=== PATIENT | female | born 1985 | race Two or more races ===

== ENCOUNTER 2023-05-27 19:26 | Emergency (ER) | payer OTHER, MEDICAID ==
[~2023-05-27] VITALS: Ht 160 cm; Wt 91.7 kg
[2023-05-27 22:16] VITALS: BP 147/80; PULSE 95; RESP 16; TEMP 99; O2SAT 98
[2023-05-27] MEDS ORDERED: HYDROcodone-ACET 5/325MG TAB PO ONE (22:30)
[2023-05-27] MEDS ORDERED: IBU600T PO (22:33)
== END 2023-05-27 23:44 | disposition home or self-care (01) ==
LOC: ER 19:26
DX: S93.401A Sprain of unspecified ligament of right ankle, initial encounter (principal); S93.601A Unspecified sprain of right foot, initial encounter; Z79.1 Long term (current) use of non-steroidal anti-inflammatories (NSAID); X50.1XXA Overexertion from prolonged static or awkward postures, initial encounter; Y93.89 Activity, other specified; Y92.89 Other specified places as the place of occurrence of the external cause; Y99.8 Other external cause status
CPT/HCPCS: 29515; 73610; 73630

== ENCOUNTER 2025-06-28 22:32 | Emergency (ER) | payer OTHER ==
[~2025-06-28] VITALS: Ht 157.5 cm; Wt 89.3 kg
[~2025-06-28 22:32] MED LIST: IBU600T PO
[2025-06-28 22:34] VITALS: BP 123/84; PULSE 75; RESP 16; TEMP 98.6; O2SAT 96
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
[2025-06-29] MEDS ORDERED: IBUPROFEN 800 MG TAB PO ONE (01:00)
== END 2025-06-29 02:06 | disposition home or self-care (01) ==
LOC: ER 22:32
DX: M25.512 Pain in left shoulder (principal); M25.511 Pain in right shoulder; Z79.899 Other long term (current) drug therapy; V43.52XA Car driver injured in collision with other type car in traffic accident, initial encounter; Y93.89 Activity, other specified; Y92.488 Other paved roadways as the place of occurrence of the external cause; Y99.8 Other external cause status

== ENCOUNTER 2025-10-19 08:32 | Emergency (ER) | payer OTHER ==
[~2025-10-19] VITALS: Ht 157.5 cm; Wt 90.1 kg
--- NOTE | 2025-10-19 09:26 | ED.PDOC ---
Foreign Body HPI Comments This is a 40 year old female presenting to the ED with chief complaint of food stuck in throat. Patient reports that she was eating steak last night when she noticed that a piece got stuck in her throat, being unable to swallow it. Patient relays that since then she has been experiencing nausea with associated vomiting and difficulty swallowing water. Patient states she was seen in [facility] [place]R was performed and she was given glucagon, but no relief had been noted. Patient notes she has had a similar episode before 13 years ago when she needed an endoscopy to remove a piece of pork chop at the time. Patient denies any abdominal pain, SOB, or sore throat. Chief Complaint: Foreign Body Time Seen by MD: 09:24 History of Present Illness: Nurses Notes, Medications, Allergies Allergies: Coded Allergies: NO KNOWN ALLERGIES (Unverified , 05/27/23) Home Meds Active Scripts Ibuprofen Micronized (MOTRIN TABLET) 600 Mg Tb, 1 TAB PO TID PRN, #20 TAB as needed for pain with food Prov:ARMANDO UPTON SHIP RIGGER 05/27/23 Information Source: Patient, Spouse Mode of Arrival: Ambulatory Timing: Hours Duration: Since onset Severity: Moderate Ability to handle secretions: Difficult Prehospital treatment: None Location: Throat Context: Ingestion, Accidental Foreign Body: Other (Steak) Removal: Was not attempted, Was not successful Past Medical History PAST MEDICAL HISTORY: Denies Surgical History (Other): Endoscopy for stuck food PAIRER History: No Pertinent PAIRER History Family History Family History: Reviewed,noncontributory to illness Social History Smoker: Non-Smoker Alcohol: Denies ETOH Use Drugs: Denies Drug Use Lives In: Home Constitutional: denies: chills, diaphoresis, fatigue, fever, malaise, sweats, weakness, others EENTM: reports: others (Difficulty swallowing); denies: blurred vision, double vision, ear bleeding, ear discharge, ear drainage, ear pain, ear ringing, eye pain, eye redness, hearing loss, mouth pain, mouth swelling, nasal discharge, nose bleeding, nose congestion, nose pain, photophobia, tearing, throat pain, throat swelling, voice changes Respiratory: denies: cough, hemoptysis, orthopnea, SOB at rest, shortness of breath, SOB with excertion, stridor, wheezing, others Cardiovascular: denies: chest pain, dizzy spells, diaphoresis, Dyspnea on exertion, edema, irregular heart beat, left arm pain, lightheadedness, palpitations, PND, syncope, others Gastrointestinal: reports: nausea, vomiting; denies: abdomen distended, abdominal pain, blood streaked bowels, constipated, diarrhea, dysphagia, difficulty swallowing, hematemesis, melena, poor appetite, poor fluid intake, rectal bleeding, rectal pain, others Genitourinary: denies: abnormal vagina bleeding, burning, dyspareunia, dysuria, flank pain, frequency, hematuria, incontinence, pain, , vagina discharge, urgency, others Neurological: denies: dizziness, fainting, headache, left sided numbness, left sided weakness, numbness, paresthesia, pre-existing deficit, right sided numbness, right sided weakness, seizure, speech problems, tingling, tremors, weakness, others Musculoskeletal: denies: back pain, gout, joint pain, joint swelling, muscle pain, muscle stiffness, neck pain, others Integumetry: denies: bruises, change in color, change in hair/nails, dryness, laceration, lesions, lumps, rash, wounds, others Allergic/Immunocompromised: denies: Difficulty Healing, Frequent Infections, Hives, Itching, others Hematologic/Lymphatic: denies: anemia, blood clots, easy bleeding, easy bruising, swollen glands, others Endocrine: denies: excessive hunger, excessive sweating, excessive thirst, excessive urination, flushing, intolerance to cold, intolerance to heat, unexplained weight gain, unexplained weight loss, others Psychiatric: denies: anxiety, bipolar disorder, depression, hopeless, panic disorder, schizophrenia, sleepless, suicidal, others All Other Systems: Reviewed and Negative Physical Exam General Appearance: Moderate Distress, Normal HEENT: Normal ENT Inspection, Pharynx Normal, TMs Normal Neck: Full Range of Motion, Non-Tender, Normal, Normal Inspection Respiratory: Chest Non-Tender, Lungs Clear, No Accessory Muscle Use, No Respiratory Distress, Normal Breath Sounds Cardiovascular: No Edema, No JVD, No Murmur, No Gallop, Normal Peripheral Pulses, Regular Rate/Rhythm Breast Exam: Deferred Gastrointestinal: No Organomegaly, Non Tender, No Pulsatile Mass, Normal Bowel Sounds, Soft Genitalia: Deferred Pelvic: Deferred Rectal: Deferred Extremities: No calf tenderness, Normal capillary refill, Normal inspection, Normal range of motion, Non-tender, No pedal edema Musculoskeletal : Apperance: Normal Neurologic: Alert, wrap turner II-XII nml as Tested, No Motor Deficits, Normal Affect, Normal Mood, No Sensory Deficits Cerebellar Function: Normal Reflexes: Normal Skin: Dry, Normal Color, Warm Peripheral Pulses: 3+ Radial (R), 3+ Radial (L) Lymphatic: No Adenopathy Was a procedure done? Was a procedure done?: No FB Differential Dx Differential Diagnosis: Esophageal Obstruction, Foreign Body X-Ray, Labs, Meds, VS Vital Signs Date Time Temp Pulse Resp B/P (MAP) Pulse Ox O2 Delivery O2 Flow Rate FiO2 10/19/25 08:34 98.2 96 16 125/95 96 98.2 Patient alert. Came in because she thinks that something stuck in her throat. All started after eating yesterday. Vitals stable. Was seen at a different hospital was diagnosed with no foreign body. Ambulating. She states that she is unable to tolerate liquids or solid food. Explained to the patient. Continue monitoring. Time of 1ST Reevaluation: 10:22 Reevaluation 1ST: Improved Patient Education/Counseling: Diagnosis, Treatment Family Education/Counseling: Diagnosis, Treatment Departure 1 Departure Time of Disposition: 09:50 Impression: Primary Impression: Sensation of foreign body Disposition: ADMITTED INPATIENT Admit to: Med Surg Condition: Guarded Critical Care Note Critical Care Time?: No Stability Stability form required: No Heart Score Heart Score: Heart Score Response (Comments) Value History N/A 0 EKG N/A 0 Age N/A 0 Risk Factors N/A 0 Troponin N/A 0 Total 0 I personally scribed for DENISE SÁNCHEZ MD ([email or web address]) on 10/19/25 at 09:26. Electronically submitted by Trever Pierre ([email or web address]). DENISE SÁNCHEZ MD Oct 19, 2025 09:26
[2025-10-19] MEDS: SODIUM CHLORIDE 0.9% 1,000 ML IV ONE (13:15)
--- NOTE | 2025-10-19 14:50 | DVH ---
Accession Number: [id number] CLINICAL HISTORY: SOMETHING STUCK IN THROAT COMPARISON: None TECHNIQUE: After the intravenous administration of intravenous contrast, multi- slice CT scan of the neck was performed without complication. Radiation Dose Information: CT Dose: CTDI volume is 22.6 mGy. Dose-length product is 1.78 mGy*cm FINDINGS: The glottis is closed limiting evaluation. Mild prominence of the lingual tonsil. Otherwise, nasopharynx, oropharynx, hypopharynx, and larynx demonstrate normal patency and contour without evidence of a soft tissue mass at this time. Small amount of fluid within the proximal thoracic esophagus. There appears to be Postsurgical changes of the posterior tongue Bilaterally, the parotid, submandibular, and sublingual glands are normal in their size, shape, and attenuation without evidence of calcification. The visualized oral tongue, tongue base, and floor of mouth regions demonstrate no obvious mass or abnormal enhancement. No significant cervical lymphadenopathy. 1.3 cm right thyroid lobe nodule. No evidence of acute osseous abnormalities.The lung apices are clear. IMPRESSION: No food bolus or foreign body is visualized. Small amount of fluid within the proximal thoracic esophagus. 1.3 cm right thyroid lobe nodule.
[2025-10-19 16:00] LABS: Urine Protein, UAD 1+ (Negative)
[2025-10-19 16:11] VITALS: BP 149/99; PULSE 89; RESP 18; TEMP 98.3; O2SAT 100
== END 2025-10-19 19:22 | disposition home or self-care (01) ==
LOC: ER 08:32
DX: R09.A2 Foreign body sensation, throat (principal); Z79.899 Other long term (current) drug therapy
CPT/HCPCS: 70491; 81001; 99285; Q9967